=== PATIENT | male | born 1990 | race Hispanic/Latino ===

== ENCOUNTER 2016-09-18 08:39 | Emergency (ER) | payer SELFPAY ==
--- NOTE | 2016-09-18 08:57 | EDM.PDOC ---
ED HPI GI/ABDOMINAL - General Chief Complaint: Gastrointestinal Problem Stated Complaint: VOMITTING AND FEVER Time Seen by Provider: 09/18/16 08:40 Source of Information: Reports: Patient History Limitations: Reports: No limitations - History of Present Illness INITIAL COMMENTS - FREE TEXT/NARRATIVE: History of present illness: [] Patient was sent home from work yesterday with abdominal pain and vomiting. His pain is intermittent, epigastric, nonradiating sharp. He has been taking Pepto-Bismol and has noticed black stools. Had intermittent vomiting fevers. Patient's sister was in the emergency room with the same symptoms yesterday. Review of systems: As per history of present illness and below otherwise all systems reviewed and negative. Past medical history: As per history of present illness and as reviewed below otherwise noncontributory. Surgical history: As per history of present illness and as reviewed below otherwise noncontributory. Social history: No reported history of drug or alcohol abuse. Family history: As per history of present illness and as reviewed below otherwise noncontributory. Physical exam: General: Well developed, well nourished in NAD HEENT: Atraumatic, normocephalic, pupils reactive, negative for conjunctival pallor or scleral icterus, mucous membranes moist, throat clear, neck supple, nontender, trachea midline. Lungs: Clear to auscultation, breath sounds equal bilaterally, chest nontender. Heart: S1S2, regular, negative for clicks, rubs, or JVD. Abdomen: Soft, nondistended, nontender. Negative for masses or hepatosplenomegaly. Negative for costovertebral tenderness. Pelvis: Stable nontender. Genitourinary: Deferred. Rectal: Deferred. Extremities: Atraumatic, negative for cords or calf pain. Neurovascular unremarkable. Neuro: Awake, alert, oriented. Cranial nerves II through XII unremarkable. Cerebellum unremarkable. Motor and sensory unremarkable throughout. Exam nonfocal. Diagnostics: [] Lab work is normal here Therapeutics: [] Zofran for nausea with improvement. Impression: [] GERD Plan: [] Zofran, Pepcid followup primary care Definitive disposition and diagnosis as appropriate pending reevaluation and review of above. - Related Data Allergies/ADRs: Allergies Allergy/AdvReac Type Severity Reaction Status Date / Time Dairy Products Allergy Rash Verified 09/18/16 08:52 Home Meds: Home Meds Ondansetron HCl [Zofran] 4 mg PO Q8HR PRN #12 tablet 09/18/16 [Rx] Past Medical History - Past Health History Medical/Surgical History: Denies Medical/Surgical History Social & Family History - Family History Family Medical History: Noncontributory Cardiac: Reports: Hypertension Endocrine/Metabolic: Reports: Diabetes, type II - Tobacco Use Smoking Status *Q: Current Every Day Smoker Years of Tobacco use: 1 Packs/Tins Daily: 1 - Recreational Drug Use Recreational Drug Use: No ED ROS GENERAL - Review of Systems Review Of Systems: See Below (See history of present illness) ED EXAM, GI/ABD - Physical Exam Exam: See Below (See history of present illness) Course - Vital Signs Last Recorded V/S: Last Vital Signs Temp 37.1 C 09/18/16 08:52 Pulse 70 09/18/16 08:52 Resp 20 09/18/16 08:52 BP 141/93 H 09/18/16 08:52 Pulse Ox 97 09/18/16 08:52 - Orders/Labs/Meds Labs: Laboratory Tests 09/18/16 09/18/16 Range/Units 09:06 09:06 WBC 9.16 (4.0-11.0) K/uL RBC 5.51 (4.50-5.90) M/uL Hgb 16.6 (13.0-17.0) g/dL Hct 47.4 (38.0-50.0) % MCV 86.0 (80.0-98.0) fL MCH 30.1 (27.0-32.0) pg MCHC 35.0 (31.0-37.0) g/dL RDW Std Deviation 41.2 (28.0-62.0) fl RDW Coeff of Michel 13 (11.0-15.0) % Plt Count 257 (150-400) K/uL MPV 10.10 (7.40-12.00) fL Neut % (Auto) 72.4 (48.0-80.0) % Lymph % (Auto) 16.8 (16.0-40.0) % Charles % (Auto) 9.4 (0.0-15.0) % Eos % (Auto) 1.3 (0.0-7.0) % Baso % (Auto) 0.1 (0.0-1.5) % Neut # 6.6 H (1.4-5.7) K/uL Lymph # 1.5 (0.6-2.4) K/uL Charles # 0.9 H (0.0-0.8) K/uL Eos # 0.1 (0.0-0.7) K/uL Baso # 0.0 (0.0-0.1) K/uL Nucleated RBC % 0.0 /100WBC Nucleated RBCs # 0 K/uL Sodium 138 (136-146) mmol/L Potassium 3.6 (3.5-5.1) mmol/L Chloride 107 (98-110) mmol/L Carbon Dioxide 20 L (21-31) mmol/L BUN 18 (6.0-23.0) mg/dL Creatinine 0.9 (0.6-1.5) mg/dL Est Cr Clr Drug Dosing 122.44 mL/min Estimated GFR (MDRD) > 60.0 ml/min Glucose 107 (60-110) mg/dL Calcium 8.9 (8.8-10.8) mg/dL Total Bilirubin 1.1 (0.1-1.5) mg/dL AST 23 (5-40) IU/L ALT 37 (8-54) IU/L Alkaline Phosphatase 75 (40-150) Total Protein 7.7 (6.0-8.0) g/dL Albumin 4.2 (3.5-5.0) g/dL Globulin 3.5 (2.0-3.5) g/dL Albumin/Globulin Ratio 1.2 L (1.3-2.8) Lipase 9 (7-80) U/L Meds: Medications Discontinued Medications Generic Name Dose Route Start Last Admin Trade Name Freq PRN Reason Stop Dose Admin Ondansetron HCl 4 mg 09/18/16 08:58 09/18/16 09:01 Zofran Odt PO 09/18/16 08:59 4 mg ONETIME ONE Administration Departure - Departure Time of Disposition: 09:52 Disposition: Home, Self-Care 01 Condition: good Clinical Impression: Abdominal pain Qualifiers: Abdominal location: epigastric Qualified Code(s): R10.13 - Epigastric pain Prescriptions: Ondansetron HCl [Zofran] 4 mg PO Q8HR PRN #12 tablet PRN Reason: Nausea Referrals: PCP,None [Primary Care Provider] - Forms: ED Department Discharge Additional Instructions: The following information is given to patients seen in the emergency department who are being discharged to home. This information is to outline your options for follow-up care. We provide all patients seen in our emergency department with a follow-up referral. The need for follow-up, as well as the timing and circumstances, are variable depending upon the specifics of your emergency department visit. If you don't have a primary care physician on staff, we will provide you with a referral. We always advise you to contact your personal physician following an emergency department visit to inform them of the circumstance of the visit and for follow-up with them and/or the need for any referrals to a consulting specialist. The emergency department will also refer you to a specialist when appropriate. This referral assures that you have the opportunity for follow-up care with a specialist. All of these measure are taken in an effort to provide you with optimal care, which includes your follow-up. Under all circumstances we always encourage you to contact your private physician who remains a resource for coordinating your care. When calling for follow-up care, please make the office aware that this follow-up is from your recent emergency room visit. If for any reason you are refused follow-up, please contact the [facility] Emergency Department at and asked to speak to the emergency department charge nurse. Jey for nausea take the counter Pepcid a.c. as directed [facility] [address] [place] [id number]
[2016-09-18] MEDS ORDERED: Ondansetron 4 MG Tab.DIS PO ONE (08:58)
[2016-09-18 09:41] LABS: CHLORIDE,CL 107 mmol/L (98-110); SODIUM,NA 138 mmol/L (136-146)
[2016-09-18 10:09] VITALS: BP 158/96
== END 2016-09-18 10:07 | disposition home or self-care (01) ==
LOC: MW.ED 08:39
DX: K21.9 Gastro-esophageal reflux disease without esophagitis (principal); F17.210 Nicotine dependence, cigarettes, uncomplicated; Z91.011 Allergy to milk products
CPT/HCPCS: 36415; 80053; 83690; 85025; 99283; A9270

== ENCOUNTER 2022-07-16 07:58 | Emergency (ER) | payer BC | END 2022-07-16 08:09 | disposition left against medical advice (07) | LOC: MW.ED 07:58 | DX: Z53.21 Procedure and treatment not carried out due to patient leaving prior to being seen by health care provider (principal) ==

== ENCOUNTER 2023-04-25 02:02 | Emergency (ER) | payer BC ==
[2023-04-25] MEDS ORDERED: Sodium Chloride 0.9% 2.5 ML Syringe FLUSH PRN (02:18)
[2023-04-25] MEDS ORDERED: Sodium Chloride 0.9% 10 ML Syringe FLUSH PRN (02:18)
[2023-04-25] MEDS ORDERED: Sodium Chloride 0.9% 1,000 ML IV ONE ×2 (02:18→02:19)
[2023-04-25 02:37] LABS: BASOPHILS ABSOLUTE AUTO 0.04 K/uL (0.00-0.20); BASOPHILS PERCENT AUTO 0.4 % (0.0-1.0); EOSINOPHILS ABSOLUTE AUTO 0.31 K/uL (0.00-0.45); HEMATOCRIT 49.6 % (42.0-52.0); HEMOGLOBIN 17.2 g/dL (14.0-18.0); IMMATURE GRAN ABSOLUTE AUTO 0.06 K/uL (0.00-0.05); IMMATURE GRAN PERCENT AUTO 0.6 % (0.0-0.4); LYMPHOCYTES ABSOLUTE AUTO 2.73 K/uL (1.00-4.80); LYMPHOCYTES PERCENT AUTO 26.1 % (24.0-44.0); MEAN CORPUSCULAR HEMOGLOBIN 29.7 pg (28.0-32.0); MEAN CORPUSCULAR HGB CONC 34.7 g/dL (32.0-36.0); MEAN CORPUSCULAR VOLUME 85.5 fL (83.0-99.0); MEAN PLATELET VOLUME 10.1 fL (9.4-12.4); MONOCYTES ABSOLUTE AUTO 1.17 K/uL (0.00-0.80); MONOCYTES PERCENT AUTO 11.2 % (0.0-8.0); NEUTROPHILS ABSOLUTE AUTO 6.16 K/uL (1.80-7.70); NEUTROPHILS PERCENT AUTO 58.7 % (41.0-71.0); PH,VENOUS 7.39 (7.31-7.41); PLATELET COUNT,PLT 306 K/uL (150-400); WHITE BLOOD CELL COUNT,WBC 10.47 K/uL (3.9-11.3)
[2023-04-25 02:50] LABS: D-DIMER QUANTITATIVE 0.27 mg/L FEU (0.00-0.50); INR 1.02 (0.86-1.11)
[2023-04-25 03:11] LABS: A/G RATIO 0.9 (0.9-1.6); BILIRUBIN TOTAL 0.3 mg/dL (0.2-1.0); CALCIUM 8.7 mg/dL (8.5-10.1); CARBON DIOXIDE,CO2 21.9 mmol/L (21.0-32.0); EST CRCL DRUG DOSING (CG) 100.07 mL/min; LACTIC ACID 2.3 mmol/L (0.4-2.0); POTASSIUM,K 4.3 mmol/L (3.5-5.1); PROTEIN TOTAL,TP 8.6 g/dL (6.4-8.2); TSH ULTRASENSITIVE 1.6 uIU/mL (0.36-3.74)
[2023-04-25 04:12] VITALS: BP 149/88; PULSE 91
== END 2023-04-25 04:11 ==
LOC: MW.ED 02:02
DX: F10.129 Alcohol abuse with intoxication, unspecified (principal); Z91.011 Allergy to milk products; Z20.822 Contact with and (suspected) exposure to COVID-19
CPT/HCPCS: 36415; 71045; 80053; 80307; 82803; 83605; 83880; 84443; 84484; 85025; 85379; 85610; 87635; 93005; 96360; 99284; J3490; J7030; 93010; 99282; U0002

== ENCOUNTER 2023-08-02 08:38 | Observation (INO) | payer BC ==
[2023-08-02] MEDS ORDERED: Sodium Chloride 0.9% 1,000 ML IV ONE (09:05)
[2023-08-02] MEDS ORDERED: Piperacillin/Tazobactam 4.5 GM in Sodium Chloride 0.9% 100 ML IV ONE (09:05)
[2023-08-02] MEDS ORDERED: HYDROmorphone 1 MG/ML Syringe IVPUSH ONE (09:05)
[2023-08-02 09:54] LABS: BASE EXCESS VENOUS 1.2 (-2.0-3.0); PH,VENOUS 7.4 (7.31-7.41)
[2023-08-02 09:59] LABS: BASOPHILS ABSOLUTE AUTO 0.05 K/uL (0.00-0.20); BASOPHILS PERCENT AUTO 0.3 % (0.0-1.0); EOSINOPHILS PERCENT AUTO 2.3 % (0.0-6.0); HEMATOCRIT 48.3 % (42.0-52.0); HEMOGLOBIN 16.7 g/dL (14.0-18.0); IMMATURE GRAN ABSOLUTE AUTO 0.08 K/uL (0.00-0.05); IMMATURE GRAN PERCENT AUTO 0.5 % (0.0-0.4); LYMPHOCYTES ABSOLUTE AUTO 2.49 K/uL (1.00-4.80); LYMPHOCYTES PERCENT AUTO 14.5 % (24.0-44.0); MEAN CORPUSCULAR HEMOGLOBIN 29.9 pg (28.0-32.0); MEAN CORPUSCULAR HGB CONC 34.6 g/dL (32.0-36.0); MEAN CORPUSCULAR VOLUME 86.4 fL (83.0-99.0); MEAN PLATELET VOLUME 10.1 fL (9.4-12.4); MONOCYTES PERCENT AUTO 8.1 % (0.0-8.0); NEUTROPHILS ABSOLUTE AUTO 12.77 K/uL (1.80-7.70); NEUTROPHILS PERCENT AUTO 74.3 % (41.0-71.0); PLATELET COUNT,PLT 339 K/uL (150-400); RED BLOOD CELL COUNT 5.59 M/uL (4.52-5.90); WHITE BLOOD CELL COUNT,WBC 17.19 K/uL (3.9-11.3)
[2023-08-02] MEDS ORDERED: droPERidol 5 MG/2 ML SDV IVPUSH PRN (10:48)
[2023-08-02] MEDS ORDERED: Albuterol 0.083% 2.5 MG/3 ML Neb Soln NEB PRN (10:48)
[2023-08-02] MEDS ORDERED: Metoclopramide 10 MG/2 ML SDV IVPUSH PRN (10:48)
[2023-08-02] MEDS ORDERED: fentaNYL 50 MCG/ML SDV IVPUSH PRN (10:48)
[2023-08-02] MEDS ORDERED: HYDROmorphone 1 MG/ML Syringe IVPUSH PRN ×2 (10:48→14:36)
[2023-08-02] MEDS ORDERED: Naloxone 0.4 MG/ML SDV IVPUSH PRN (10:48)
[2023-08-02] MEDS ORDERED: Morphine 2 MG/ML SYRINGE IVPUSH PRN (10:48)
[2023-08-02] MEDS ORDERED: Ondansetron 4 MG/2 ML SDV IVPUSH PRN ×2 (10:48→14:36)
[2023-08-02 11:05] LABS: A/G RATIO 0.8 (0.9-1.6); ALBUMIN 3.4 g/dL (3.4-5.0); BILIRUBIN TOTAL 0.6 mg/dL (0.2-1.0); CALCIUM 8.6 mg/dL (8.5-10.1); CARBON DIOXIDE,CO2 23.6 mmol/L (21.0-32.0); EST CRCL DRUG DOSING (CG) 100.07 mL/min; PROTEIN TOTAL,TP 7.6 g/dL (6.4-8.2)
[2023-08-02] MEDS ORDERED: Iopamidol 755 MG/ML 500 ML Multipack Bottle IVPUSH STA (11:28)
[2023-08-02] MEDS ORDERED: Bupivacaine 0.5% 10 ML SDV ONE (12:56)
[2023-08-02] MEDS ORDERED: Lidocaine 1% 20 ML MDV ONE (12:56)
[2023-08-02] MEDS: Lactated Ringers 1,000 ML IV SCH ×2 (13:05→15:49)
[2023-08-02] MEDS ORDERED: dexmedeTOMIDine HCl 200 MCG/2 ML SDV ONE (13:17)
[2023-08-02] MEDS ORDERED: Water For Injection, Sterile 20 ML ONE (13:18)
[2023-08-02] MEDS ORDERED: fentaNYL 250 MCG/5 ML SDV ONE (13:18)
[2023-08-02] MEDS ORDERED: propofoL 50 ML ONE (13:18)
[2023-08-02] MEDS ORDERED: Ketamine 500 mg/10 ML MDV ONE (13:18)
[2023-08-02] MEDS ORDERED: Lidocaine 2% 11 ML Jelly Filled Syringe ONE (13:41)
[2023-08-02] MEDS ORDERED: Rocuronium Bromide 50 MG/5 ML Syringe ONE (13:59)
[2023-08-02] MEDS ORDERED: Sugammadex Sodium 200 MG/2 ML VIAL ONE (14:04)
[2023-08-02] MEDS ORDERED: Ondansetron 4 MG/2 ML SDV ONE (14:05)
[2023-08-02] MEDS ORDERED: diphenhydrAMINE 50 MG/ML SDV IVPUSH PRN (14:36)
[2023-08-02] MEDS ORDERED: Acetaminophen/oxyCODONE 325-5 MG Tab PO PRN (14:36)
[2023-08-02] MEDS ORDERED: Metoprolol Tartrate 5 MG/5 ML SDV IVPUSH PRN (14:40)
[2023-08-02] MEDS: Ketorolac 30 MG/ML SDV IVPUSH SCH ×2 (15:37→20:46)
[2023-08-02] MEDS: Piperacillin/Tazobactam 4.5 GM in Sodium Chloride 0.9% 100 ML IV SCH ×2 (15:46→21:50)
[2023-08-02 21:41] LABS: BILIRUBIN,URINE NEGATIVE (NEGATIVE); GLUCOSE,URINE NEGATIVE (NEGATIVE); KETONES,URINE NEGATIVE (NEGATIVE); LEUKOCYTE ESTERASE,URINE NEGATIVE (NEGATIVE); NITRITE,URINE NEGATIVE (NEGATIVE); OCCULT BLOOD,URINE NEGATIVE (NEGATIVE); PROTEIN,URINE NEGATIVE (NEGATIVE); UROBILINOGEN,URINE 0.2 EU/dL (<2.0)
[2023-08-02 22:03] LABS: APPEARANCE,URINE CLEAR; COLOR,URINE DARK YELLOW
[2023-08-03] MEDS: Lactated Ringers 1,000 ML IV SCH (00:56)
[2023-08-03] MEDS: Ketorolac 30 MG/ML SDV IVPUSH SCH ×2 (02:28→08:36)
[2023-08-03] MEDS: Piperacillin/Tazobactam 4.5 GM in Sodium Chloride 0.9% 100 ML IV SCH (05:59)
[2023-08-03 12:31] VITALS: BP 149/92; PULSE 73
== END 2023-08-03 11:15 | disposition home or self-care (01) ==
LOC: MW.ED 08:38 → MW.SDS 08:38 → MW.MS 13:28
PROVIDERS: ADMIT Surgery; ATTEND Surgery
DX: L02.215 Cutaneous abscess of perineum (principal); E11.9 Type 2 diabetes mellitus without complications; I10 Essential (primary) hypertension; E66.01 Morbid (severe) obesity due to excess calories; Z68.42 Body mass index [BMI] 45.0-49.9, adult; Z91.011 Allergy to milk products
CPT/HCPCS: 10060; 36415; 74177; 80053; 81003; 82009; 82803; 82947; 83605; 83735; 85025; 87040; 87070; 87075; 87205; 96365; 96375; 99285; A9270; J0665; J1170; J1885; J2543; J2704; J3010; J3490; J7030; J7120; Q9967; 99284; J2405

== ENCOUNTER 2024-03-15 09:04 | Emergency (ER) | payer SELFPAY ==
[2024-03-15] MEDS: Morphine 4 MG/ML Syringe IVPUSH ONE (09:46)
[2024-03-15] MEDS: cefTRIAXone 2 GM in Sodium Chloride 0.9% 50 ML IV ONE (09:46)
[2024-03-15] MEDS: Sodium Chloride 0.9% 2.5 ML Syringe FLUSH PRN (09:46)
[2024-03-15] MEDS: Sodium Chloride 0.9% 10 ML Syringe FLUSH PRN (09:46)
[2024-03-15 10:25] LABS: BASOPHILS ABSOLUTE AUTO 0.05 K/uL (0.00-0.20); BASOPHILS PERCENT AUTO 0.4 % (0.0-1.0); EOSINOPHILS ABSOLUTE AUTO 0.37 K/uL (0.00-0.45); EOSINOPHILS PERCENT AUTO 2.8 % (0.0-6.0); HEMATOCRIT 46.1 % (42.0-52.0); HEMOGLOBIN 15.6 g/dL (14.0-18.0); IMMATURE GRAN ABSOLUTE AUTO 0.03 K/uL (0.00-0.05); IMMATURE GRAN PERCENT AUTO 0.2 % (0.0-0.4); LYMPHOCYTES ABSOLUTE AUTO 2.23 K/uL (1.00-4.80); MEAN CORPUSCULAR HGB CONC 33.8 g/dL (32.0-36.0); MEAN CORPUSCULAR VOLUME 85.7 fL (83.0-99.0); MEAN PLATELET VOLUME 10.4 fL (9.4-12.4); MONOCYTES ABSOLUTE AUTO 1.14 K/uL (0.00-0.80); MONOCYTES PERCENT AUTO 8.7 % (0.0-8.0); NEUTROPHILS ABSOLUTE AUTO 9.31 K/uL (1.80-7.70); NEUTROPHILS PERCENT AUTO 70.9 % (41.0-71.0); PLATELET COUNT,PLT 287 K/uL (150-400); RED BLOOD CELL COUNT 5.38 M/uL (4.52-5.90); WHITE BLOOD CELL COUNT,WBC 13.13 K/uL (3.9-11.3)
[2024-03-15] MEDS: diphenhydrAMINE 50 MG/ML SDV IVPUSH ONE (10:32)
[2024-03-15 10:42] LABS: INR 1.06 (0.86-1.11); PTT,PARTIAL THROMBOPLSTIN TIME 33.2 SEC (23.9-30.7)
[2024-03-15 10:53] LABS: A/G RATIO 0.9 (0.9-1.6); ALBUMIN 3.5 g/dL (3.4-5.0); CALCIUM 8.7 mg/dL (8.5-10.1); CARBON DIOXIDE,CO2 24.9 mmol/L (21.0-32.0); CREATININE 0.9 mg/dL (0.8-1.3); EST CRCL DRUG DOSING (CG) 111.19 mL/min; POTASSIUM,K 3.8 mmol/L (3.5-5.1); PROTEIN TOTAL,TP 7.6 g/dL (6.4-8.2)
[2024-03-15] MEDS: Iopamidol 755 MG/ML 500 ML Multipack Bottle IVPUSH STA (11:36)
[2024-03-15] MEDS ORDERED: Lidocaine 2% with EPINEPHrine 1:200,000 20 ML SDV INJECT ONE (12:17)
[2024-03-15] MEDS: fentaNYL 50 MCG/ML SDV IVPUSH ONE (12:33)
[2024-03-15] MEDS: Lidocaine 1% with EPINEPHrine 1:200,000 30 ML SDV INJECT ONE (12:34)
[2024-03-15 14:15] VITALS: BP 138/74; PULSE 71
== END 2024-03-15 14:14 | disposition home or self-care (01) ==
LOC: MW.ED 09:04
DX: L02.214 Cutaneous abscess of groin (principal); E11.9 Type 2 diabetes mellitus without complications; Z91.011 Allergy to milk products; Z88.8 Allergy status to other drugs, medicaments and biological substances; Z79.899 Other long term (current) drug therapy; Z75.8 Other problems related to medical facilities and other health care
CPT/HCPCS: 10060; 36415; 72193; 80053; 83605; 85025; 85610; 85730; 87040; 96365; 96375; 99284; J0696; J1200; J2270; J3010; J3490; Q9967; 84436; 86003; 87077; 87154; 87186; G0480

== ENCOUNTER 2024-04-03 08:32 | Inpatient (IN) | payer SELFPAY ==
[2024-04-03] MEDS: Sodium Chloride 0.9% 1,000 ML IV ONE (11:01)
[2024-04-03] MEDS: Acetaminophen/oxyCODONE 325-10 MG Tab PO ONE (11:01)
[2024-04-03 11:14] LABS: BASOPHILS ABSOLUTE AUTO 0.05 K/uL (0.00-0.20); BASOPHILS PERCENT AUTO 0.3 % (0.0-1.0); EOSINOPHILS PERCENT AUTO 4.2 % (0.0-6.0); HEMATOCRIT 48.1 % (42.0-52.0); HEMOGLOBIN 16.3 g/dL (14.0-18.0); IMMATURE GRAN ABSOLUTE AUTO 0.05 K/uL (0.00-0.05); IMMATURE GRAN PERCENT AUTO 0.3 % (0.0-0.4); LYMPHOCYTES ABSOLUTE AUTO 2.57 K/uL (1.00-4.80); LYMPHOCYTES PERCENT AUTO 17.9 % (24.0-44.0); MEAN CORPUSCULAR HEMOGLOBIN 29.2 pg (28.0-32.0); MEAN CORPUSCULAR HGB CONC 33.9 g/dL (32.0-36.0); MEAN CORPUSCULAR VOLUME 86.2 fL (83.0-99.0); MEAN PLATELET VOLUME 10.1 fL (9.4-12.4); MONOCYTES ABSOLUTE AUTO 1.19 K/uL (0.00-0.80); MONOCYTES PERCENT AUTO 8.3 % (0.0-8.0); NEUTROPHILS ABSOLUTE AUTO 9.91 K/uL (1.80-7.70); PLATELET COUNT,PLT 327 K/uL (150-400); RED BLOOD CELL COUNT 5.58 M/uL (4.52-5.90); WHITE BLOOD CELL COUNT,WBC 14.37 K/uL (3.9-11.3)
[2024-04-03 11:44] LABS: A/G RATIO 0.9 (0.9-1.6); ALBUMIN 3.9 g/dL (3.4-5.0); BILIRUBIN TOTAL 0.7 mg/dL (0.2-1.0); CALCIUM 9.4 mg/dL (8.5-10.1); CARBON DIOXIDE,CO2 23.4 mmol/L (21.0-32.0); CREATININE 0.9 mg/dL (0.8-1.3); EST CRCL DRUG DOSING (CG) 110.17 mL/min; POTASSIUM,K 4.1 mmol/L (3.5-5.1); PROTEIN TOTAL,TP 8.4 g/dL (6.4-8.2)
[2024-04-03] MEDS: Iopamidol 755 MG/ML 500 ML Multipack Bottle IVPUSH STA (12:19)
[2024-04-03 12:23] LABS: LACTIC ACID 1.6 mmol/L (0.4-2.0)
[2024-04-03] MEDS: Clindamycin Phosphate in D5W 600 MG in Premix Bag 1 BAG IV ONE (12:52)
[2024-04-03] MEDS: VANCOmycin 2 GM/400 ML 2 GM in Premix Bag 1 BAG IV ONE (13:09)
[2024-04-03 14:07] LABS: HEMOGLOBIN A1C 5.7 %
[2024-04-03] MEDS ORDERED: Sodium Chloride 0.9% 10 ML Syringe FLUSH PRN (14:32)
[2024-04-03] MEDS ORDERED: Docusate Sodium 100 MG Cap PO PRN (14:32)
[2024-04-03] MEDS ORDERED: Naloxone 0.4 MG/ML SDV IVPUSH PRN (14:32)
[2024-04-03] MEDS ORDERED: Acetaminophen 325 MG Tab PO PRN (14:32)
[2024-04-03] MEDS ORDERED: Ondansetron 4 MG/2 ML SDV IVPUSH PRN (14:32)
[2024-04-03] MEDS ORDERED: oxyCODONE 5 MG Tab PO PRN (14:32)
[2024-04-03] MEDS ORDERED: Morphine 2 MG/ML SYRINGE IVPUSH PRN (14:32)
[2024-04-03] MEDS ORDERED: Sodium Chloride 0.9% 2.5 ML Syringe FLUSH PRN (14:32)
[2024-04-03] MEDS: diphenhydrAMINE 50 MG/ML SDV IVPUSH ONE (14:51)
[2024-04-03] MEDS: Sodium Chloride 0.9% 1,000 ML IV STA (14:51)
[2024-04-03] MEDS: Piperacillin/Tazobactam 4.5 GM in Sodium Chloride 0.9% 100 ML IV ONE (15:13)
[2024-04-03] MEDS: Piperacillin/Tazobactam 4.5 GM in Sodium Chloride 0.9% 100 ML IV SCH (21:57)
[2024-04-03] MEDS: Enoxaparin 40 MG/0.4 ML Syringe SUBCUT SCH (22:09)
[2024-04-03] MEDS: Doxycycline 100 MG in Sodium Chloride 0.9% 100 ML IV SCH (23:53)
[2024-04-04] MEDS ORDERED: VANCOmycin 1.75 GM/350 ML 1.75 GM in Premix Bag 1 BAG IV SCH (01:00)
[2024-04-04 05:59] LABS: BASOPHILS ABSOLUTE AUTO 0.04 K/uL (0.00-0.20); BASOPHILS PERCENT AUTO 0.4 % (0.0-1.0); EOSINOPHILS ABSOLUTE AUTO 0.48 K/uL (0.00-0.45); EOSINOPHILS PERCENT AUTO 4.5 % (0.0-6.0); HEMATOCRIT 44.7 % (42.0-52.0); HEMOGLOBIN 14.7 g/dL (14.0-18.0); IMMATURE GRAN ABSOLUTE AUTO 0.04 K/uL (0.00-0.05); IMMATURE GRAN PERCENT AUTO 0.4 % (0.0-0.4); LYMPHOCYTES ABSOLUTE AUTO 2.46 K/uL (1.00-4.80); LYMPHOCYTES PERCENT AUTO 23.2 % (24.0-44.0); MEAN CORPUSCULAR HEMOGLOBIN 28.7 pg (28.0-32.0); MEAN CORPUSCULAR HGB CONC 32.9 g/dL (32.0-36.0); MEAN CORPUSCULAR VOLUME 87.3 fL (83.0-99.0); MEAN PLATELET VOLUME 10.4 fL (9.4-12.4); MONOCYTES ABSOLUTE AUTO 0.87 K/uL (0.00-0.80); MONOCYTES PERCENT AUTO 8.2 % (0.0-8.0); NEUTROPHILS ABSOLUTE AUTO 6.73 K/uL (1.80-7.70); NEUTROPHILS PERCENT AUTO 63.3 % (41.0-71.0); PLATELET COUNT,PLT 296 K/uL (150-400); RED BLOOD CELL COUNT 5.12 M/uL (4.52-5.90); WHITE BLOOD CELL COUNT,WBC 10.62 K/uL (3.9-11.3)
[2024-04-04 06:24] LABS: CALCIUM 8.6 mg/dL (8.5-10.1); CARBON DIOXIDE,CO2 25.5 mmol/L (21.0-32.0); EST CRCL DRUG DOSING (CG) 99.15 mL/min; MAGNESIUM 2.1 mg/dL (1.8-2.4); POTASSIUM,K 3.8 mmol/L (3.5-5.1)
[2024-04-05 05:49] LABS: BASOPHILS ABSOLUTE AUTO 0.04 K/uL (0.00-0.20); BASOPHILS PERCENT AUTO 0.4 % (0.0-1.0); EOSINOPHILS ABSOLUTE AUTO 0.57 K/uL (0.00-0.45); EOSINOPHILS PERCENT AUTO 5.9 % (0.0-6.0); HEMATOCRIT 45.9 % (42.0-52.0); HEMOGLOBIN 15.2 g/dL (14.0-18.0); IMMATURE GRAN ABSOLUTE AUTO 0.03 K/uL (0.00-0.05); IMMATURE GRAN PERCENT AUTO 0.3 % (0.0-0.4); LYMPHOCYTES ABSOLUTE AUTO 2.91 K/uL (1.00-4.80); LYMPHOCYTES PERCENT AUTO 30.3 % (24.0-44.0); MEAN CORPUSCULAR HEMOGLOBIN 28.9 pg (28.0-32.0); MEAN CORPUSCULAR HGB CONC 33.1 g/dL (32.0-36.0); MEAN CORPUSCULAR VOLUME 87.3 fL (83.0-99.0); MEAN PLATELET VOLUME 10.5 fL (9.4-12.4); MONOCYTES ABSOLUTE AUTO 1.05 K/uL (0.00-0.80); MONOCYTES PERCENT AUTO 10.9 % (0.0-8.0); NEUTROPHILS ABSOLUTE AUTO 5.01 K/uL (1.80-7.70); NEUTROPHILS PERCENT AUTO 52.2 % (41.0-71.0); PLATELET COUNT,PLT 318 K/uL (150-400); RED BLOOD CELL COUNT 5.26 M/uL (4.52-5.90); WHITE BLOOD CELL COUNT,WBC 9.61 K/uL (3.9-11.3)
[2024-04-05 06:09] LABS: CALCIUM 8.6 mg/dL (8.5-10.1); CARBON DIOXIDE,CO2 24.1 mmol/L (21.0-32.0); EST CRCL DRUG DOSING (CG) 99.15 mL/min; POTASSIUM,K 3.4 mmol/L (3.5-5.1)
[2024-04-05] MEDS: Amoxicillin/Clavulanate K 875-125 MG Tab PO ONE (09:48)
[2024-04-05] MEDS: Doxycycline 100 MG Cap PO ONE (09:49)
[2024-04-05 11:46] VITALS: PULSE 62
[2024-04-05 11:47] VITALS: BP 160/93
== END 2024-04-05 11:30 | disposition home or self-care (01) | DRG 728 ==
LOC: MW.ED 08:32 → MW.MS 13:41
PROVIDERS: ADMIT Family Medicine; ATTEND Family Medicine
DX: N49.2 Inflammatory disorders of scrotum (principal); Z68.42 Body mass index [BMI] 45.0-49.9, adult; L73.2 Hidradenitis suppurativa; E66.01 Morbid (severe) obesity due to excess calories; D72.829 Elevated white blood cell count, unspecified; I10 Essential (primary) hypertension; E11.9 Type 2 diabetes mellitus without complications; G47.30 Sleep apnea, unspecified; K21.9 Gastro-esophageal reflux disease without esophagitis; F17.210 Nicotine dependence, cigarettes, uncomplicated; Z88.1 Allergy status to other antibiotic agents; Z91.011 Allergy to milk products; Z86.16 Personal history of COVID-19
CPT/HCPCS: 36415; 72193; 72193-26; 80048; 80053; 83036; 83605; 83735; 85025; 87040; 96361; 96365; 96367; 99283; 99284-25; A9270-GY; J0736; J1200; J1650; J2543; J3372; J3490; J7030; Q9967

== ENCOUNTER 2024-05-28 09:35 | Emergency (ER) | payer SELFPAY ==
[2024-05-28 11:32] LABS: BASOPHILS ABSOLUTE AUTO 0.06 K/uL (0.00-0.20); BASOPHILS PERCENT AUTO 0.4 % (0.0-1.0); EOSINOPHILS ABSOLUTE AUTO 0.63 K/uL (0.00-0.45); EOSINOPHILS PERCENT AUTO 4.1 % (0.0-6.0); HEMATOCRIT 48.6 % (42.0-52.0); HEMOGLOBIN 16.6 g/dL (14.0-18.0); IMMATURE GRAN ABSOLUTE AUTO 0.05 K/uL (0.00-0.05); IMMATURE GRAN PERCENT AUTO 0.3 % (0.0-0.4); LYMPHOCYTES ABSOLUTE AUTO 2.37 K/uL (1.00-4.80); LYMPHOCYTES PERCENT AUTO 15.5 % (24.0-44.0); MEAN CORPUSCULAR HEMOGLOBIN 29.2 pg (28.0-32.0); MEAN CORPUSCULAR HGB CONC 34.2 g/dL (32.0-36.0); MEAN CORPUSCULAR VOLUME 85.4 fL (83.0-99.0); MEAN PLATELET VOLUME 10.1 fL (9.4-12.4); MONOCYTES ABSOLUTE AUTO 1.14 K/uL (0.00-0.80); MONOCYTES PERCENT AUTO 7.5 % (0.0-8.0); NEUTROPHILS ABSOLUTE AUTO 11.02 K/uL (1.80-7.70); NEUTROPHILS PERCENT AUTO 72.2 % (41.0-71.0); PLATELET COUNT,PLT 299 K/uL (150-400); RED BLOOD CELL COUNT 5.69 M/uL (4.52-5.90); WHITE BLOOD CELL COUNT,WBC 15.27 K/uL (3.9-11.3)
[2024-05-28] MEDS: Ketorolac 30 MG/ML SDV IM ONE (11:39)
[2024-05-28 12:07] LABS: A/G RATIO 0.9 (0.9-1.6); ALBUMIN 3.8 g/dL (3.4-5.0); BILIRUBIN TOTAL 0.6 mg/dL (0.2-1.0); CALCIUM 9.2 mg/dL (8.5-10.1); CARBON DIOXIDE,CO2 24.6 mmol/L (21.0-32.0); CREATININE 0.9 mg/dL (0.8-1.3); EST CRCL DRUG DOSING (CG) 110.17 mL/min; PROTEIN TOTAL,TP 7.8 g/dL (6.4-8.2)
[2024-05-28] MEDS: Iopamidol 755 MG/ML 500 ML Multipack Bottle IVPUSH STA (12:51)
[2024-05-28 12:57] VITALS: BP 117/78; PULSE 80
[2024-05-28] MEDS: Lidocaine 1% 10 ML MDV INJECT ONE (13:57)
== END 2024-05-28 14:15 | disposition home or self-care (01) ==
LOC: MW.ED 09:35
DX: N49.2 Inflammatory disorders of scrotum (principal); I10 Essential (primary) hypertension; Z86.16 Personal history of COVID-19; Z88.1 Allergy status to other antibiotic agents; Z91.011 Allergy to milk products
CPT/HCPCS: 36415; 74177; 80053; 85025; 96372; 99283; J1885; Q9967; J3490

== ENCOUNTER 2024-09-27 09:27 | Emergency (ER) | payer SELFPAY ==
[2024-09-27] MEDS: Ondansetron 4 MG Tab.DIS PO STA (10:44)
[2024-09-27] MEDS: Lidocaine 1% with EPINEPHrine 1:100,000 10 ML MDV INJECT STA (10:44)
[2024-09-27] MEDS: oxyCODONE 5 MG Tab PO STA (10:44)
[2024-09-27] MEDS: Ketorolac 30 MG/ML SDV IM STA (10:45)
[2024-09-27] MEDS: Ondansetron 4 MG/2 ML SDV IVPUSH STA (10:49)
[2024-09-27 11:15] LABS: BASOPHILS ABSOLUTE AUTO 0.06 K/uL (0.00-0.20); BASOPHILS PERCENT AUTO 0.5 % (0.0-1.0); EOSINOPHILS ABSOLUTE AUTO 0.58 K/uL (0.00-0.45); EOSINOPHILS PERCENT AUTO 4.6 % (0.0-6.0); HEMATOCRIT 46.9 % (42.0-52.0); HEMOGLOBIN 16.1 g/dL (14.0-18.0); IMMATURE GRAN ABSOLUTE AUTO 0.05 K/uL (0.00-0.05); IMMATURE GRAN PERCENT AUTO 0.4 % (0.0-0.4); LYMPHOCYTES ABSOLUTE AUTO 1.96 K/uL (1.00-4.80); LYMPHOCYTES PERCENT AUTO 15.7 % (24.0-44.0); MEAN CORPUSCULAR HEMOGLOBIN 29.7 pg (28.0-32.0); MEAN CORPUSCULAR HGB CONC 34.3 g/dL (32.0-36.0); MEAN CORPUSCULAR VOLUME 86.4 fL (83.0-99.0); MONOCYTES ABSOLUTE AUTO 1.06 K/uL (0.00-0.80); MONOCYTES PERCENT AUTO 8.5 % (0.0-8.0); NEUTROPHILS ABSOLUTE AUTO 8.79 K/uL (1.80-7.70); NEUTROPHILS PERCENT AUTO 70.3 % (41.0-71.0); PLATELET COUNT,PLT 320 K/uL (150-400); RED BLOOD CELL COUNT 5.43 M/uL (4.52-5.90)
[2024-09-27] MEDS: Iopamidol 755 MG/ML 500 ML Multipack Bottle IVPUSH STA (11:20)
[2024-09-27 11:41] LABS: A/G RATIO 0.8 (0.9-1.6); ALBUMIN 3.5 g/dL (3.4-5.0); BILIRUBIN TOTAL 0.8 mg/dL (0.2-1.0); CALCIUM 8.9 mg/dL (8.5-10.1); CREATININE 1.1 mg/dL (0.8-1.3); EST CRCL DRUG DOSING (CG) 90.14 mL/min; POTASSIUM,K 4.1 mmol/L (3.5-5.1); PROTEIN TOTAL,TP 7.7 g/dL (6.4-8.2)
[2024-09-27] MEDS: Morphine 4 MG/ML Syringe IVPUSH STA (11:52)
[2024-09-27] MEDS: Ampicillin/Sulbactam Na 3 GM in Sodium Chloride 0.9% 100 ML IV STA (11:53)
[2024-09-27 12:19] LABS: HEMOGLOBIN A1C 6.2 %
[2024-09-27 12:47] VITALS: BP 169/86; PULSE 67
== END 2024-09-27 12:48 | disposition home or self-care (01) ==
LOC: MW.ED 09:27
DX: L02.214 Cutaneous abscess of groin (principal); R73.03 Prediabetes; I10 Essential (primary) hypertension; Z75.8 Other problems related to medical facilities and other health care; Z88.1 Allergy status to other antibiotic agents; Z91.011 Allergy to milk products; Z79.899 Other long term (current) drug therapy; Z86.16 Personal history of COVID-19
CPT/HCPCS: 36415; 74177; 80053; 83036; 85025; 96365; 96372; 96375; 99284; A9270; J0295; J1885; J2270; Q9967; 55100

== ENCOUNTER 2025-01-25 20:41 | Emergency (ER) | payer SELFPAY ==
[2025-01-25 22:24] LABS: BASOPHILS ABSOLUTE AUTO 0.06 K/uL (0.00-0.20); BASOPHILS PERCENT AUTO 0.3 % (0.0-1.0); EOSINOPHILS ABSOLUTE AUTO 0.44 K/uL (0.00-0.45); EOSINOPHILS PERCENT AUTO 2.5 % (0.0-6.0); IMMATURE GRAN ABSOLUTE AUTO 0.06 K/uL (0.00-0.05); IMMATURE GRAN PERCENT AUTO 0.3 % (0.0-0.4); LYMPHOCYTES ABSOLUTE AUTO 1.93 K/uL (1.00-4.80); LYMPHOCYTES PERCENT AUTO 11.1 % (24.0-44.0); MEAN PLATELET VOLUME 9.8 fL (9.4-12.4); MONOCYTES ABSOLUTE AUTO 1.33 K/uL (0.00-0.80); MONOCYTES PERCENT AUTO 7.7 % (0.0-8.0); NEUTROPHILS ABSOLUTE AUTO 13.50 K/uL (1.80-7.70); NEUTROPHILS PERCENT AUTO 78.1 % (41.0-71.0); NRBC ABSOLUTE 0.00 K/uL (0.00-0.02); NRBC PERCENT 0.0 /100WBC (0.0-0.2); PLATELET COUNT,PLT 304 K/uL (150-400); RED BLOOD CELL COUNT 5.80 M/uL (4.52-5.90); WHITE BLOOD CELL COUNT,WBC 17.32 K/uL (3.9-11.3)
[2025-01-25 22:48] LABS: A/G RATIO 0.6 (0.9-1.6); ALANINE AMINOTRANSFERASE,ALT 52.0 IU/L (14-63); ASPARTATE AMNIOTRANSFERASE,AST 28.0 IU/L (15-37); BILIRUBIN TOTAL 1.1 mg/dL (0.2-1.0); BLOOD UREA NITROGEN,BUN 13.0 mg/dL (7.0-18.0); CARBON DIOXIDE,CO2 29.6 mmol/L (21.0-32.0); CHLORIDE,CL 101.0 mmol/L (98-107); CREATININE 1.1 mg/dL (0.8-1.3); EST CRCL DRUG DOSING (CG) 93.27 mL/min; GLUCOSE RANDOM 101.0 mg/dL (74-106); POTASSIUM,K 3.5 mmol/L (3.5-5.1); PROTEIN TOTAL,TP 8.2 g/dL (6.4-8.2); SODIUM,NA 135.0 mmol/L (136-148)
[2025-01-25 22:53] LABS: ESTIMATED GFR 91.0 mL/min (>60)
[2025-01-25] MEDS: Iopamidol 755 MG/ML 500 ML Multipack Bottle IVPUSH STA (23:24)
[2025-01-26] MEDS: Ketorolac 30 MG/ML SDV IVPUSH ONE (00:33)
[2025-01-26 00:52] VITALS: BP 151/73; PULSE 88
== END 2025-01-26 00:52 | disposition home or self-care (01) ==
LOC: MW.ED 20:41
DX: L02.215 Cutaneous abscess of perineum (principal); I10 Essential (primary) hypertension; Z88.1 Allergy status to other antibiotic agents; Z88.8 Allergy status to other drugs, medicaments and biological substances; Z91.011 Allergy to milk products; Z79.899 Other long term (current) drug therapy; Z86.16 Personal history of COVID-19
CPT/HCPCS: 36415; 74177; 80053; 85025; 96361; 96374; 96375; 96376; 99284; A9270; J1171; J1885; J7030; Q9967